=== PATIENT | female | born 2000 | race African-American/Black ===

== ENCOUNTER 2020-06-23 14:57 | Emergency (ER) | payer BC, SELFPAY ==
[2020-06-23 15:01] VITALS: BP 120/70; PULSE 106; RESP 14; TEMP 36.7; O2SAT 99
[2020-06-23 15:18] VITALS: BP 120/70; PULSE 106; RESP 20; TEMP 36.7; O2SAT 99
[2020-06-23] MEDS: HYDROcodone/acetaminophen (*CRX) 5-325 MG TABLET 1 TAB PO (15:40)
[2020-06-23] MEDS: LORazepam (*CRX) 0.5 MG TABLET PO (15:41)
--- NOTE | 2020-06-23 16:06 | ED.GENADULT ---
HPI - General Adult General Chief complaint: Skin/Abscess/Foreign Body <Jj Conroy PA-C - Last Filed: 06/23/20 16:31> Stated complaint: Bump on butt <Jj Conroy PA-C - Last Filed: 06/23/20 16:31> Time Seen by Provider: 06/23/20 15:06 <Jj Conroy PA-C - Last Filed: 06/23/20 16:31> Source: patient, family and RN notes reviewed <Jj Conroy PA-C - Last Filed: 06/23/20 16:31> Mode of arrival: ambulatory <Jj Conroy PA-C - Last Filed: 06/23/20 16:31> Limitations: no limitations <Jj Conroy PA-C - Last Filed: 06/23/20 16:31> History of Present Illness HPI narrative: Patient is a 20-year-old female who presents to emergency department for evaluation of wound to the buttock that has been present now for the last week 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 Flagyl and Cipro today which she began patient notes a red tender swollen painful area in the gluteal cleft denies similar occurrence in the past has not taken anything for pain does not present in distress alert does not appear to be uncomfortable on arrival <Jj Conroy PA-C - Last Filed: 06/23/20 16:31> Related Data Allergies/adverse reactions: Allergies Allergy/AdvReac Type Severity Reaction Status Date / Time amoxicillin Allergy Rash Verified 06/23/20 15:23 <Jj Conroy PA-C - Last Filed: 06/23/20 16:31> Review of Systems Review of Systems: All systems reviewed & are unremarkable except as noted in HPI and below <Jj Conroy PA-C - Last Filed: 06/23/20 16:31> PMFSH Social History Social History: Social History (Updated 06/23/20 @ 16:07 by Jj Conroy PA-C) Smoking status: Never smoker <TAI Alvarez Last Filed: 06/23/20 16:31> Exam Narrative: Exam Narrative: GENERAL: Well-appearing, well-nourished, and in no acute distress. HEAD: Normocephalic, atraumatic. EYES: PERRLA and EOMI. ENT: Nares clear, no rhinorrhea or epistaxis. Mucous membranes moist. CHEST: Clear to auscultation. No respiratory distress. No wheezes rales or rhonchi HEART: Regular rate and rhythm. No murmur heard. EXTREMITIES: Normal range of motion. No edema. SKIN: Warm, dry, no rash. Red tender swollen area in the left inner buttock at the gluteal cleft consistent with abscess no surrounding cellulitic changes NEURO: No focal deficits. Alert and oriented x3. PSYCH: Normal mood and affect. <TAI Alvarez Last Filed: 06/23/20 16:31> Course Course Emergency Course: Patient evaluated for abscess which was I&D in the emergency department had packing placed and will follow up patient <TAI Alvarez Last Filed: 06/23/20 16:31> Vital Signs Vital signs: Vital Signs Temperature 36.7 C 06/23/20 15:01 Pulse Rate 106 H 06/23/20 15:01 Respiratory Rate 14 06/23/20 15:01 Blood Pressure 120/70 06/23/20 15:01 Pulse Oximetry 99 06/23/20 15:01 Temperature 36.7 C 06/23/20 15:18 Pulse Rate 106 H 06/23/20 15:18 Respiratory Rate 20 06/23/20 15:18 Blood Pressure 120/70 06/23/20 15:18 Pulse Oximetry 99 06/23/20 15:18 <TAI Alvarez Last Filed: 06/23/20 16:31> Vital Signs Temperature 36.7 C 06/23/20 15:01 Pulse Rate 106 H 06/23/20 15:01 Respiratory Rate 14 06/23/20 15:01 Blood Pressure 120/70 06/23/20 15:01 Pulse Oximetry 99 06/23/20 15:01 Temperature 36.7 C 06/23/20 15:18 Pulse Rate 106 H 06/23/20 15:18 Respiratory Rate 20 06/23/20 15:18 Blood Pressure 120/70 06/23/20 15:18 Pulse Oximetry 99 06/23/20 15:18 <Ameena Salvador MD - Last Filed: 06/23/20 16:36> Procedures Abscess I/D buttock: Date of Incision: 06/23/20 <TAI Alvarez Last Filed: 06/23/20 16:31> Time of Incision: 16:08 <TAI Alvarez Last Filed: 06/23/20 16:31> Side (if applicable): left <TAI Alvarez Last Filed: 06/23/20
== END 2020-06-23 17:07 | disposition home or self-care (01) ==
PROVIDERS: Emergency Provider Emergency Medicine
DX: L02.31 Cutaneous abscess of buttock (principal)
CPT/HCPCS: 10061; 99283; A9270